=== PATIENT | male | born 1995 | race African-American/Black ===

== ENCOUNTER 2020-01-06 18:34 | Emergency (ER) | payer SELFPAY ==
--- NOTE | 2020-01-06 19:23 | ER Document Report ---
ED Medical Screen (RME) - General Chief Complaint: Chest Pain Stated Complaint: CHEST PAIN Time Seen by Provider: 01/06/20 19:18 Primary Care Provider: RICHMOND LESLIE MD [Primary Care Provider] - Follow up as needed Notes: Patient is a 24-year-old male presents emergency department with a chief complaint of chest pain. Patient states that it is a sharp pain in the left side of his chest. Patient states that his symptoms started 3 days ago. He has not taken any medication to help with the pain. Patient does not smoke. Denies any medical problems. Denies any shortness of breath or difficulty breathing. Exam: Sinus rhythm on twelve-lead EKG. I have greeted and performed a rapid initial assessment of this patient. A comprehensive ED assessment and evaluation of the patient, analysis of test results and completion of medical decision making process will be conducted by an additional ED providers. - Related Data Allergies/Adverse Reactions: No Known Allergies Allergy (Unverified 01/06/20 19:15) Past Medical History - Immunizations Hx Diphtheria, Pertussis, Tetanus Vaccination: Yes Physical Exam - Vital signs Vitals: Temp Pulse Resp BP Pulse Ox 99.4 F 83 16 136/90 H 97 01/06/20 18:49 01/06/20 18:49 01/06/20 18:49 01/06/20 18:49 01/06/20 18:49 Course - Vital Signs Vital signs: Temp Pulse Resp BP Pulse Ox 99.4 F 83 16 136/90 H 97 01/06/20 18:49 01/06/20 18:49 01/06/20 18:49 01/06/20 18:49 01/06/20 18:49 Doctor's Discharge - Discharge Referrals: RICHMOND LESLIE MD [Primary Care Provider] - Follow up as needed
[2020-01-06 19:40] LABS: ABSOLUTE LYMPHOCYTES (AUTO) 2.2 10^3/uL (0.5-4.7); ABSOLUTE MONOCYTES (AUTO) 0.3 10^3/uL (0.1-1.4); ABSOLUTE NEUT (AUTO) 2.9 10^3/uL (1.7-8.2); BASOPHILS % (AUTO) 0.6 % (0-2); EOSINOPHILS % (AUTO) 0.5 % (0-6); HEMATOCRIT 45.6 % (37.9-51.0); HEMOGLOBIN 15.8 g/dL (13.5-17.0); LYMPHOCYTES % (AUTO) 39.3 % (13-45); MEAN CORPUSCULAR HEMOGLOBIN 30.8 pg (27.0-33.4); MEAN CORPUSCULAR HGB CONC 34.6 g/dL (32.0-36.0); MEAN CORPUSCULAR VOLUME 89 fl (80-97); PLATELET COUNT 251 10^3/uL (150-450); RED BLOOD COUNT 5.13 10^6/uL (4.35-5.55); RED CELL DISTRIBUTION WIDTH 12.1 % (11.5-14.0); SEGMENTED NEUTROPHILS % (AUTO) 53.6 % (42-78); TOTAL CELLS COUNTED % (AUTO) 100 %; WHITE BLOOD COUNT 5.5 10^3/uL (4.0-10.5)
--- NOTE | 2020-01-06 19:58 | RADIOLOGY REPORT (SQ) ---
EXAM DESCRIPTION: CHEST SINGLE VIEW IMAGES COMPLETED DATE/TIME: 01/06/2020 7:27 pm REASON FOR STUDY: chest pain COMPARISON: None. EXAM PARAMETERS: NUMBER OF VIEWS: One view. TECHNIQUE: Single frontal radiographic view of the chest acquired. RADIATION DOSE: NA LIMITATIONS: None. FINDINGS: LUNGS AND PLEURA: No opacities, masses or pneumothorax. No pleural effusion. MEDIASTINUM AND HILAR STRUCTURES: No masses. Contour normal. HEART AND VASCULAR STRUCTURES: Heart normal in size. Normal vasculature. BONES: No acute findings. HARDWARE: None in the chest. OTHER: No other significant finding. IMPRESSION: NO ACUTE RADIOGRAPHIC FINDING IN THE CHEST. TECHNICAL DOCUMENTATION: JOB ID: [id number] [email or web address]- All Rights Reserved Reading location - IP/workstation name: [email or web address]
[2020-01-06 19:59] LABS: ALBUMIN 4.6 g/dL (3.5-5.0); ALKALINE PHOSPHATASE 55 U/L (38-126); ANION GAP 8 (5-19); ASPARTATE AMINO TRANSFERASE 28 U/L (17-59); BILIRUBIN,TOTAL 0.4 mg/dL (0.2-1.3); BLOOD UREA NITROGEN 14 mg/dL (7-20); CALCIUM 9.6 mg/dL (8.4-10.2); CARBON DIOXIDE 27 mmol/L (22-30); CHLORIDE 105 mmol/L (98-107); GLUCOSE 86 mg/dL (75-110); POTASSIUM 4.2 mmol/L (3.6-5.0); TOTAL PROTEIN 8.1 g/dL (6.3-8.2)
--- NOTE | 2020-01-06 20:45 | ER Document Report ---
ED General - General Chief Complaint: Chest Pain Stated Complaint: CHEST PAIN Time Seen by Provider: 01/06/20 19:18 Primary Care Provider: RICHMOND LESLIE MD [NO LOCAL MD] - Follow up as needed - HPI Notes: Chief complaint: Chest pain Previously healthy 24-year-old male non-smoker with no history of cardiac disease, diabetes mellitus, hypertension or hyperlipidemia, no history of thromboembolic disease and family history negative for CAD presents now with 2 to 3-day history of intermittent sharp nonradiating left anterior chest discomfort. Patient works in a fast food restaurant. He denies fever, chills, cough, nausea or vomiting. He denies injury or unaccustomed activity. He denies any use of cocaine. He has not taken any treatment for his discomfort. He is on no regular medications and has no known allergies. He denies any prior history of hospitalization surgery or serious illness of any type. - Related Data Allergies/Adverse Reactions: No Known Allergies Allergy (Unverified 01/06/20 19:15) Past Medical History - General Information source: Patient - Social History Smoking Status: Never Smoker Family History: Reviewed & Not Pertinent Patient has suicidal ideation: No Patient has homicidal ideation: No - Immunizations Hx Diphtheria, Pertussis, Tetanus Vaccination: Yes Review of Systems - Review of Systems Notes: Constitutional: Negative for fever. HENT: Negative for sore throat. Eyes: Negative for visual changes. Cardiovascular: As per HPI. Respiratory: Negative for shortness of breath. Gastrointestinal: Negative for abdominal pain, vomiting or diarrhea. Genitourinary: Negative for dysuria. Musculoskeletal: Negative for back pain. Skin: Negative for rash. Neurological: Negative for headaches, weakness or numbness. 10 point ROS negative except as marked above and in HPI. Physical Exam - Vital signs Vitals: Temp Pulse Resp BP Pulse Ox 99.4 F 83 16 136/90 H 97 01/06/20 18:49 01/06/20 18:49 01/06/20 18:49 01/06/20 18:49 01/06/20 18:49 - Notes Notes: GENERAL: Well-developed well-nourished appearing in no acute distress. SKIN: Good turgor no rashes. HEAD: Normocephalic atraumatic. EYES: PERRLA. EOMI. Conjunctivae and sclerae clear. EARS: CANALS AND TMS CLEAR. NOSE: CLEAR. MOUTH: Moist mucosa. Good dentition. No stridor or edema. No drooling. NECK: Supple. No masses or thyromegaly. No adenopathy. Carotids 2+ without bruits. No JVD. BACK: Symmetrical without tenderness. CHEST: Mild left parasternal tenderness to palpation. Respirations unlabored. Breath sounds clear and symmetrical. HEART: Regular rhythm. No murmur gallop or rub. ABDOMEN: Soft nontender without masses, organomegaly or rebound. Bowel sounds normally active. No bruits. GENITALIA: Deferred. EXTREMITIES: No edema. No calf tenderness. Cap refill less than 1.5 seconds. Dorsalis pedis and posterior tibial pulses 3+ and symmetrical. NEUROLOGICAL: GCS 15. Alert and oriented x3. Normal gait. Fluent speech. Cranial nerves II through XII intact. Sensorimotor and cerebellar normal. Normal tone. PSYCHIATRIC: Appropriate affect. Course - Re-evaluation Re-evalutation: 01/06/20 20:44 Patient would appear to be at extremely low risk for coronary disease or thromboembolic disease. Characteristics of his discomfort and current findings suggest this to be of musculoskeletal origin. EKG and chest x-ray are normal. I basically reassured him and advised treatment with NSAID and outpatient follow-up with PMD. - Vital Signs Vital signs: Temp Pulse Resp BP Pulse Ox 99.4 F 83 16 136/90 H 97 01/06/20 18:49 01/06/20 18:49 01/06/20 18:49 01/06/20 18:49 01/06/20 18:49 - Laboratory Result Diagrams: 01/06/20 19:30 01/06/20 19:30 - Diagnostic Test Radiology reviewed: Reports reviewed - Chest x-ray shows no active disease per radiologist. - EKG Interpretation by Me Additional EKG results interpreted by me: 01/06/20 20:43 Twelve-lead EKG from 1843 hrs. reviewed contemporaneously by me showing normal sinus rhythm with rate of 82 and a QRS axis of 8 degrees. Intervals are normal. There are no acute ST or T wave changes. Discharge - Discharge Clinical Impression: Chest wall pain Condition: Stable Disposition: HOME, SELF-CARE Instructions: Chest Wall Pain ([facility]), Anti-Inflammatory Medication ([facility]) Prescriptions: Naproxen 500 mg PO BID PRN 7 Days #14 tablet PRN Reason: Referrals: RICHMOND LESLIE MD [NO LOCAL MD] - Follow up as needed
[2020-01-06 20:51] VITALS: BP 142/89
--- NOTE | 2020-01-07 08:29 | EKG REPORT ---
SEVERITY:- NORMAL ECG - SINUS RHYTHM : Confirmed by: Johnson Johnston 07-Jan-2020 08:27:48
== END 2020-01-06 21:09 | disposition home or self-care (01) ==
LOC: ER 18:34
DX: R07.89 Other chest pain (principal)
CPT/HCPCS: 36415; 71045; 80053; 85025; 93005; 93010; 99285